=== PATIENT | female | born 1990 | race Caucasian/White ===

== ENCOUNTER 2017-11-29 12:15 | Emergency (ER) | payer OTHER ==
[2017-11-29] MEDS: IBUPROFEN 800 MG TAB PO (12:37)
== END 2017-11-29 13:55 | disposition home or self-care (01) ==
LOC: M ED 12:15
DX: S90.32XA Contusion of left foot, initial encounter (principal); W18.40XA Slipping, tripping and stumbling without falling, unspecified, initial encounter; Y92.099 Unspecified place in other non-institutional residence as the place of occurrence of the external cause; Y93.9 Activity, unspecified; Y99.9 Unspecified external cause status
CPT/HCPCS: 73610

== ENCOUNTER 2018-07-26 08:00 | Day surgery (SDC) | payer OTHER ==
[~2018-07-26] VITALS: Ht 170.2 cm; Wt 129.7 kg
[~2018-07-26 08:00] MED LIST: /AUGM25TA; AMPICILLIN SOD/SULBACTAM SOD 3 GM in D5W MINI-BAG PLUS 100 ML IV ONE; CEPH500C; COLA50CA3 PO; FERR325T; FERR325T3 PO; FLUO20SO GT; IBUP600T; IBUP600T26 PO; LORTTAB5 PO; LR 1,000 ML IV ONE; MOTR200T44 PO; No Home Meds; PERC5TAB12 PO; PRENTAB40 PO; PROV90AE; PROZ20CA; PROZ20CA11 PO; VICO5TAB; dexameTHASONE 4 MG/ML 1ML VIAL (J1100) IV ONE; prenatal vitamin
[2018-07-26] MEDS ORDERED: LIDOCAINE 2% W/ EPINEPHRINE 1.7 ML DENTAL INJ As Ordered ONE (09:31)
[2018-07-26 09:50] LABS: URINE PREG TEST NEGATIVE (NEGATIVE)
[2018-07-26] MEDS ORDERED: ONDANSETRON 4MG/2ML VIAL (J2405) As Ordered ONE (10:53)
[2018-07-26] MEDS ORDERED: PROPOFOL 200 MG/20 ML VIAL As Ordered ONE ×3 (10:53→12:18)
[2018-07-26] MEDS ORDERED: MIDAZOLAM INJ 2 MG/2 ML VIAL (J2250) As Ordered ONE (10:53)
[2018-07-26] MEDS ORDERED: SUGAMMADEX SODIUM 500 MG/5 ML VIAL (BRIDION) As Ordered ONE (10:53)
[2018-07-26] MEDS ORDERED: LIDOCAINE 2% JELLY 6 ML SYRINGE As Ordered ONE (10:53)
[2018-07-26] MEDS ORDERED: fentaNYL 250 MCG/5 ML INJECTION (J3010) As Ordered ONE (10:53)
[2018-07-26] MEDS ORDERED: LIDOCAINE 2% INJ 100 MG/5 ML SDV (FOR ANES.) As Ordered ONE (10:53)
[2018-07-26] MEDS ORDERED: fentaNYL 100 MCG/2 ML INJECTION (J3010) IV PRN (11:30)
[2018-07-26] MEDS ORDERED: NORCO, ANEXSIA 5/325MG TABLET (HYDROcodone/ACETAMINOPHEN) PO PRN (11:30)
[2018-07-26] MEDS ORDERED: LR 1,000 ML IV SCH (11:30)
[2018-07-26] MEDS ORDERED: ROCURONIUM BROMIDE 50 MG/5 ML VIAL As Ordered ONE (12:18)
[2018-07-26 12:40] VITALS: BP 122/71
--- NOTE | 2018-07-26 14:59 | RO ---
DATE OF PROCEDURE: 07/26/2018 PREOPERATIVE DIAGNOSES: 1. Morbid obesity and severe dental anxiety. 2. Decayed and symptomatic teeth number 18, 29 and 30. POSTOPERATIVE DIAGNOSIS: Status post the above. PROCEDURE PERFORMED: Surgical extraction of teeth number 18, 29 and 30. SURGEON: Govind Roberts MD BOOTH CLEANER: ANESTHESIA: General endotracheal anesthesia via oral OPAL. SPECIMEN: Teeth for gross only. INDICATIONS FOR SURGERY: June as a pleasant 28-year-old female that was referred to my office for evaluation for extraction of three symptomatic and carious teeth, numbers 18, 29 and 30. She had had her dentist attempt removal of the teeth on two separate occasions with inability to achieve complete local anesthesia. She does have severe dental anxiety and will require sedation. However, she is not an ideal candidate for office anesthesia due to her potential difficult airway, therefore a discussion was made with the patient regarding having the procedure done in an operating room setting under general anesthesia. All the risks, benefits and alternatives were explained to the patient and this was where she desires to have done to have those three teeth removed in the OR under general anesthesia. A complete history and physical was performed and informed consent was reviewed and signed and both are in the patient's chart. DESCRIPTION OF PROCEDURE: On June 26, 2018 the patient presented to [facility] preop holding area. Any last minute questions were addressed. The history and physical and consent were updated. At that point the patient was taken back to the operating room. She was laid supine on the operating room table. Ulnar nerve protectors were placed. Noninvasive cardiac monitors were applied. At that point, the patient underwent general anesthesia and was intubated with an oral OPAL. She was then prepped and draped in the usual sterile fashion. A time out procedure was performed to identify the patient, the procedure and any other precautions. Preoperative antibiotics and steroids were administered in the IV. At this point a moist throat pack was inserted in the patient's oropharynx followed by the administration of 6 Carpule's of 2% lidocaine with 1:100,000 epinephrine as local infiltrations and blocks. A full-thickness flap was raised in sites number 30 and 29 with a distal release. Buccal bone was then removed from sites number 29 and 30. Forceps were then used to subluxate and deliver the teeth without any incident. Sockets were copiously irrigated and curetted and the flaps were closed with #3-0 chromic sutures. Attention was then given to tooth #18 where a sulcular flap was released with a posterior distal release. Buccal bone was removed. Forceps were then used to subluxate and deliver the tooth. The socket was copiously irrigated and curetted, and the flap was closed with #3-0 chromic sutures. At this point, the oral cavity was irrigated and suctioned. The throat pack was removed and the patient was awakened from general anesthesia and taken back to the postanesthesia care unit (PACU). COMPLICATIONS: None. ESTIMATED BLOOD LOSS: 10 mL. DRAINS: There were no drains placed.
== END 2018-07-26 12:53 | disposition home or self-care (01) ==
LOC: M SDC 08:00
PROVIDERS: ATTEND Dentist
DX: K02.9 Dental caries, unspecified (principal); D64.9 Anemia, unspecified; E66.01 Morbid (severe) obesity due to excess calories; F41.9 Anxiety disorder, unspecified; F32.9 Major depressive disorder, single episode, unspecified
CPT/HCPCS: 84703; 88300; D7210; D9223; J1100; J2250; J2405; J3010

== ENCOUNTER 2018-11-13 20:39 | Emergency (ER) | payer OTHER ==
[~2018-11-13] VITALS: Ht 170.2 cm; Wt 113.6 kg
[~2018-11-13 20:39] MED LIST changes: -AMPICILLIN SOD/SULBACTAM SOD 3 GM in D5W MINI-BAG PLUS 100 ML IV ONE; -LR 1,000 ML IV ONE; -dexameTHASONE 4 MG/ML 1ML VIAL (J1100) IV ONE
[2018-11-13] MEDS ORDERED: NS 1,000 ML IV SCH (21:23)
[2018-11-13] MEDS ORDERED: methylPREDNISolone INJ 125 MG/2 ML VIAL (J2930) IV ONE (21:30)
[2018-11-13] MEDS: IPRATROPIUM 0.5MG/ALBUTEROL 2.5MG INH SOL UD 3ML (DUONEB)(J7620) NEB PRN ×2 (21:40→21:44)
[2018-11-13 22:11] LABS: BASO # 0.1 10^3/uL (0.0-0.2); BASO % 0.4 % (0.0-1.0); EOS # 0.2 10^3/uL (0.0-0.50); EOS % 1.1 % (0.0-3.0); HEMATOCRIT 43.5 % (36.0-47.0); HEMOGLOBIN 14.5 g/dl (12.0-15.5); LYMPH # 2.4 10^3/uL (1.5-6.5); LYMPH % 18.2 % (24.0-44.0); MEAN CORPUSCULAR HEMOGLOBIN 29.9 pg (27.0-33.0); MEAN CORPUSCULAR HGB CONC 33.3 g/dl (32.0-36.5); MEAN CORPUSCULAR VOLUME 89.7 fl (80.0-96.0); MONO # 0.8 10^3/uL (0.0-0.8); MONO % 5.6 % (0.0-5.0); NEUTROPHILS # 9.9 10^3/uL (1.8-7.7); NEUTROPHILS % 74.3 % (36.0-66.0); PLATELET COUNT, AUTOMATED 228 10^3/uL (150-450); RED BLOOD COUNT 4.85 10^6/uL (4.00-5.40); WHITE BLOOD COUNT 13.4 10^3/uL (4.0-10.0)
[2018-11-13 22:21] LABS: INR 0.89; PROTHROMBIN TIME 11.7 SECONDS (11.8-14.0)
[2018-11-13 22:27] LABS: ALBUMIN 3.6 GM/DL (3.2-5.2); ALT/SGPT 27 U/L (12-78); BILIRUBIN,DIRECT 0.1 MG/DL (0.0-0.2); BILIRUBIN,TOTAL 0.3 MG/DL (0.2-1.0); BLOOD UREA NITROGEN 12 MG/DL (7-18); CALCIUM LEVEL 8.4 MG/DL (8.5-10.1); CARBON DIOXIDE LEVEL 25 MEQ/L (21-32); CHLORIDE LEVEL 109 MEQ/L (98-107); CK-MB VALUE MASS 1.1 NG/ML (<3.6); CPK CREATINE PHOSPHOKINASE 101 U/L (26-192); CREATININE FOR GFR 0.72 MG/DL (0.55-1.30); GLOMERULAR FILTRATION RATE > 60.0 (>60); GLUCOSE, FASTING 86 MG/DL (70-100); MB/CK RELATIVE INDEX 1.09 (< OR =4); NT-PRO BNP 35 PG/ML (<125); POTASSIUM SERUM 3.9 MEQ/L (3.5-5.1); SODIUM LEVEL 140 MEQ/L (136-145); TOTAL PROTEIN 6.9 GM/DL (6.4-8.2); TROPONIN I < 0.02 NG/ML (< 0.10)
[2018-11-13] MEDS ORDERED: LEVA1TAB2 PO (23:20)
[2018-11-13] MEDS ORDERED: ALBUTEROL 90 MCG/ACT 8GM HFA INHALER INH ONE (23:30)
[2018-11-13] MEDS ORDERED: MOXIFLOXACIN 400 MG TAB PO ONE (23:30)
[2018-11-14 00:19] VITALS: BP 127/60
--- NOTE | 2018-11-14 07:20 | ECGEPIP ---
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
--- NOTE | 2018-11-14 08:33 | REP ---
Clinical: Cough and dyspnea . Comparison: 05/21/2011 . Findings: The mediastinum and cardiac silhouette are stable and within normal limits for portable technique. The lung pitts are clear without acute consolidation, effusion, or pneumothorax. Skeletal structures are intact. Impression: No acute cardiopulmonary process appreciated. Electronically Signed by Bo Wallace MD 11/14/2018 08:24 A
== END 2018-11-14 00:22 | disposition home or self-care (01) ==
LOC: M ED 20:39
DX: J40 Bronchitis, not specified as acute or chronic (principal); F17.210 Nicotine dependence, cigarettes, uncomplicated
CPT/HCPCS: 71045; 80048; 80076; 82550; 82553; 83605; 83880; 85025; 85610; 87040; 93005; 93041; 94640; 94760; 99284; J2930

== ENCOUNTER 2019-12-05 13:16 | Emergency (ER) | payer OTHER ==
[~2019-12-05] VITALS: Ht 170.2 cm; Wt 104.5 kg
[~2019-12-05 13:16] MED LIST changes: +LEVA1TAB2 PO
[2019-12-05 14:00] LABS: BASO # 0.1 10^3/uL (0.0-0.2); BASO % 0.6 % (0.0-1.0); EOS # 0.1 10^3/uL (0.0-0.5); EOS % 1.5 % (0.0-3.0); HEMATOCRIT 41.2 % (36.0-47.0); HEMOGLOBIN 13.8 g/dl (12.0-15.5); LYMPH % 22.8 % (24.0-44.0); MEAN CORPUSCULAR HEMOGLOBIN 30.3 pg (27.0-33.0); MEAN CORPUSCULAR HGB CONC 33.5 g/dl (32.0-36.5); MEAN CORPUSCULAR VOLUME 90.4 fl (80.0-96.0); MONO # 0.7 10^3/uL (0.0-0.8); MONO % 8.1 % (0.0-5.0); NEUTROPHILS # 5.8 10^3/uL (1.5-8.5); NEUTROPHILS % 66.7 % (36.0-66.0); PLATELET COUNT, AUTOMATED 237 10^3/uL (150-450); RED BLOOD COUNT 4.56 10^6/uL (4.00-5.40); WHITE BLOOD COUNT 8.7 10^3/uL (4.0-10.0)
[2019-12-05] MEDS ORDERED: NS 1,000 ML IV ONE (14:00)
[2019-12-05] MEDS ORDERED: ONDANSETRON 4MG/2ML VIAL IV ONE (14:00)
[2019-12-05] MEDS ORDERED: KETOROLAC 30 MG/ML 1ML VIAL IV ONE (14:15)
[2019-12-05 14:40] LABS: BLOOD UREA NITROGEN 12 MG/DL (7-18); CARBON DIOXIDE LEVEL 28 MEQ/L (21-32); CHLORIDE LEVEL 111 MEQ/L (98-107); CREATININE FOR GFR 0.72 MG/DL (0.55-1.30); GLOMERULAR FILTRATION RATE > 60.0 (>60); GLUCOSE, FASTING 113 MG/DL (70-100); POTASSIUM SERUM 3.8 MEQ/L (3.5-5.1); SODIUM LEVEL 143 MEQ/L (136-145)
[2019-12-05 14:41] LABS: ALBUMIN 3.6 GM/DL (3.2-5.2); ALT/SGPT 119 U/L (12-78); BILIRUBIN,DIRECT 0.9 MG/DL (0.0-0.2); BILIRUBIN,TOTAL 1.4 MG/DL (0.2-1.0); CALCIUM LEVEL 9.1 MG/DL (8.5-10.1); CK-MB VALUE MASS 3.7 NG/ML (<3.6); CPK CREATINE PHOSPHOKINASE 130 U/L (26-192); LIPASE 86 U/L (73-393); MB/CK RELATIVE INDEX 2.85 (< OR =4); TOTAL PROTEIN 6.3 GM/DL (6.4-8.2); TROPONIN I < 0.02 NG/ML (< 0.10)
[2019-12-05 14:47] LABS: HCG, SERUM QUALITATIVE NEGATIVE (NEGATIVE)
[2019-12-05 15:35] LABS: GLUCOSE, URINE (UA) MANUAL NEGATIVE (NEGATIVE); KETONE, URINE MANUAL 3+ mg/dL (NEGATIVE)
[2019-12-05 15:36] LABS: BILIRUBIN, URINE MANUAL 1+ (NEGATIVE); UROBILINOGEN, URINE MANUAL 4 MG mg/dl (NORMAL)
[2019-12-05 15:37] LABS: AMORPHOUS SEDIMENT, URINE MOD AMOUNT (NEGATIVE); BACTERIA, URINE SMALL AMOUNT; HYALINE CAST, URINE NONE SEEN /lpf (0-1); MUCUS, URINE SMALL AMOUNT (NEGATIVE); SQUAMOUS EPITHELIAL CELL URINE SMALL AMOUNT /hpf (SMALL AMT)
[2019-12-05 15:56] LABS: AMPHETAMINES LEVEL URINE NEGATIVE (NEGATIVE); BARBITURATES URINE NEGATIVE (NEGATIVE); BENZODIAZEPINES URINE NEGATIVE (NEGATIVE); CANNABINOIDS URINE POSITIVE (NEGATIVE); COCAINE METABOLITE URINE NEGATIVE (NEGATIVE); METHADONE URINE NEGATIVE (NEGATIVE); OPIATES URINE NEGATIVE (NEGATIVE); PHENCYCLIDINE URINE NEGATIVE (NEGATIVE)
--- NOTE | 2019-12-05 16:13 | REPVR ---
PROCEDURE INFORMATION: Exam: US Abdomen, Limited; Right Upper Quadrant Exam date and time: 12/05/2019 3:49 PM Age: 29 years old Clinical indication: Abdominal pain; Additional info: Abd pain with elevated liver enzymes TECHNIQUE: Imaging protocol: US abdomen. Real time ultrasound with image documentation. Limited exam focused on the right upper quadrant. COMPARISON: No relevant prior studies available. FINDINGS: Liver: Normal appearing liver. Gallbladder: There is a 5 mm mobile stone in the dependent portion of the gallbladder. There is thickening of the gallbladder wall measuring 5 mm. The patient had not fasted for this examination and thickening can be seen with contraction the gallbladder. To exclude the possibility of acute cholecystitis I would recommend that the patient have a HIDA scan or follow-up fasting ultrasound. Common bile duct: The common bile duct is top-normal in size measuring 7 mm. Pancreas: The pancreas is normal in size. Right kidney: The right kidney measures 10.5 cm in length and there is no evidence of hydronephrosis. IMPRESSION: 1. 5 mm mobile gallstone dependent portion gallbladder. 2. Thickening of the gallbladder wall measuring 5 mm. Partially contracted gallbladder versus cholecystitis and it would be helpful to obtain a HIDA scan or follow-up fasting ultrasound. Electronically signed by: Mark Hobbs On 12/05/2019 16:13:40 PM
--- NOTE | 2019-12-05 18:03 | REPVR ---
PROCEDURE INFORMATION: Exam: MR Abdomen Without Contrast; Liver Exam date and time: 12/05/2019 4:21 PM Age: 29 years old Clinical indication: Abdominal pain; Acute; Patient HX: Mrcp<, abnormal gb u/s; Additional info: Abd pain, elevated liver enzymes R/O choledocolithiasis TECHNIQUE: Imaging protocol: MR Abdomen without contrast. Exam focused on the liver. 3D rendering (Not supervised by radiologist): MIP and/or 3D reconstructed images were created by the technologist. COMPARISON: GALLBLADDER US 12/05/2019 3:33 PM FINDINGS: Liver: Unremarkable liver. No lesions. Gallbladder and bile ducts: A 2.7 mm gallstone is present dependently in the nondistended gallbladder. Additional smaller calculi may be present, but are difficult to resolved. No luminal dilatation or wall thickening. The common bile duct measures 5.0 mm. No ductal calcul. Pancreas: Normal. No ductal dilatation. Spleen: A small medial splenule is present. Kidneys and ureters: Normal kidneys. Visualized ureters are unremarkable. Intraperitoneal space: Minimal nonspecific pericholecystic fluid at the gallbladder fundus. IMPRESSION: Cholelithiasis. Electronically signed by: Randall Rutledge On 12/05/2019 18:03:33 PM
[2019-12-05 18:37] VITALS: BP 117/71
[2019-12-05] MEDS ORDERED: ONDA4TAB6 PO (18:44)
[2019-12-05 19:18] LABS: HEPATITIS B SURFACE ANTIGEN NEGATIVE (NEGATIVE)
[2019-12-05 19:46] LABS: HEPATITIS B CORE ANTIBODY IGM NEGATIVE (NEGATIVE); HEPATITIS C VIRUS ABY INDEX 0.2 INDEX (<0.8)
--- NOTE | 2019-12-05 19:47 | ED PDOC ---
Post-Departure Follow-Up dr yun faxed formal report of us for fu Paulina Villarreal MD Dec 05, 2019 19:47
[2019-12-05 19:48] LABS: HEPATITIS A ANTIBODY IGM NEGATIVE (NEGATIVE)
--- NOTE | 2019-12-05 20:33 | ECGEPIP ---
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
== END 2019-12-05 19:10 | disposition home or self-care (01) ==
LOC: M ED 13:16
DX: K80.70 Calculus of gallbladder and bile duct without cholecystitis without obstruction (principal); R94.5 Abnormal results of liver function studies; F17.210 Nicotine dependence, cigarettes, uncomplicated
CPT/HCPCS: 36415; 74181; 76705; 80048; 80076; 80307; 81000; 82550; 82553; 83690; 84703; 85025; 86705; 86709; 86803; 87340; 93005; 96361; 96374; 96375; 99284; J1885; J2405

== ENCOUNTER 2020-04-13 20:09 | Emergency (ER) | payer OTHER ==
[~2020-04-13] VITALS: Ht 170.2 cm; Wt 90.9 kg
[~2020-04-13 20:09] MED LIST changes: +ONDA4TAB6 PO
--- OUTSIDE RECORDS SUMMARY | 2020-04-13 20:16 | CCD ---
Author Author [facility] Organization [facility] Address Unknown Phone Unavailable Care Team Providers Care Technology Architect Name Role Phone NCILAN, SRASO Unavailable Unavailable Re-disclosure Warning The records that you are about to access may contain information from federally-assisted alcohol or drug abuse programs. If such information is present, then the following federally mandated warning applies: This information has been disclosed to you from records protected by federal confidentiality rules (42 CFR part 2). The federal rules prohibit you from making any further disclosure of this information unless further disclosure is expressly permitted by the written consent of the person to whom it pertains or as otherwise permitted by 42 CFR part 2. A general authorization for the release of medical or other information is NOT sufficient for this purpose. The Federal rules restrict any use of the information to criminally investigate or prosecute any alcohol or drug abuse patient.The records that you are about to access may contain highly sensitive health information, the redisclosure of which is protected by Article 27-F of the [facility] Public Health law. If you continue you may have access to information: Regarding HIV / AIDS; Provided by facilities licensed or operated by the [facility] Office of Mental Health; or Provided by the [facility] Office for People With Developmental Disabilities. If such information is present, then the following [facility] mandated warning applies: This information has been disclosed to you from confidential records which are protected by state law. State law prohibits you from making any further disclosure of this information without the specific written consent of the person to whom it pertains, or as otherwise permitted by law. Any unauthorized further disclosure in violation of state law may result in a fine or long-term sentence or both. A general authorization for the release of medical or other information is NOT sufficient authorization for further disc losure. Encounters Encounter Providers Location Date Indications Data Source(s ) Outpatient Attender: [facility] 07/11/2019 11:58:00 AM EDT [facility] Outpatient Attender: [facility] 07/07/2019 09:48:00 AM EDT [facility] Outpatient Attender: [facility] 07/07/2019 09:46:00 AM EDT [facility] Outpatient Attender: [facility] 07/07/2019 09:45:01 AM EDT [facility] Outpatient Attender: [facility] 07/06/2019 02:14:01 PM EDT [facility] Outpatient Attender: [facility] 07/06/2019 02:14:00 PM EDT [facility] Outpatient Attender: [facility] 07/06/2019 01:22:00 PM EDT [facility] Medications Medication Brand Name Start Date Product Form Dose Route Admi nistrative Instructions Pharmacy Instructions Status Indications Reaction Description Data Source(s) 20 mg 12/30/2019 12:00:00 AM EDT capsule,delayed release (DR/EC) 60 TAKE ONE CAPSULE BY MOUTH EVERY MORNING DIRECTED TAKE ONE CAPSULE BY MOUTH EVERY MORNING DIRECTED SOLD: 01/06/2020 [facility] No Active Medications 12/29/2019 12:00:00 AM EDT completed [facility] ([facility], ) Omeprazole 20 MG Delayed Release Oral Capsule Omeprazole 12/29/2019 12:00:00 AM EDT ORAL active [facility] ([facility], ) 500 mg 07/06/2019 12:00:00 AM EDT capsule 21 TAKE ONE CAPSULE BY MOUTH EVERY 8 HOURS UNTIL GONE TAKE ONE CAPSULE BY MOUTH EVERY 8 HOURS UNTIL GONE [facility] 137 mcg (0.1 %) 05/27/2019 12:00:00 AM EDT aerosol,spray 30 SPRAY ONE SPRAY IN EACH NOSTRIL TWICE A DAY FOR 7 DAYS SPRAY ONE SPRAY IN EACH NOSTRIL TWICE A DAY FOR 7 DAYS SOLD: 05/27/2019 [facility] 1 gram 05/27/2019 12:00:00 AM EDT tablet 4 TAKE TWO TABLETS BY MOUTH TWICE A DAY FOR ONE DAY TAKE TWO TABLETS BY MOUTH TWICE A DAY FOR ONE DAY SOLD : 05/27/2019 [facility] 875-125 mg 05/27/2019 12:00:00 AM EDT tablet 14 TAKE ONE TABLET BY MOUTH TWICE A DAY FOR 7 DAYS TAKE ONE TABLET BY MOUTH TWICE A DAY FOR 7 DAYS SOLD: 05/27/2019 [facility] Insurance Providers Payer name Policy type / Coverage type Policy ID Covered constitution party ID Covered constitution party's relationship to andrade Policy Andrade Plan Information [facility] PLAN [facility] [id number] SP [id number] [facility] Community Plan P [id number] S [id number] Medicaid S [id number] S [id number] [facility] Plan P UNAVAILABLE S UNAVAILABLE Medicaid S UNAVAILABLE S UNAVAILA [facility] O [id number] S [id number] MEDICAID [id number] SP [id number] [facility] COMMUNITY PLAN [facility] [id number] SP [id number] [facility] [id number] SP [id number] [facility] [id number] SP [id number] [facility] PLAN [facility] [id number] SP [id number] [facility] PLAN [facility] [id number] SP [id number] Problems, Conditions, and Diagnoses Code Display Name Description Problem Type Effective Dates Data Source(s) 525.10 Teeth extraction Teeth extraction 07/06/2019 02 :13:08 PM EDT [facility] Results ID Date Data Source [id number] 07/06/2019 01:36:20 PM EDT [facility] Current Problems: Teeth extraction (ICD- 525.10) (AZE91-T70.499)Current Medications: AMOXICILLIN 500 MG CAPS (AMOXICILLIN) 1 tablet by mouth every 8 hours until gone; Route: ORAL Dental Chart: Procedures:Type - CDT Code - Description B - (D0140) Limited oral evaluation - problem focused on Tooth # 7 (Performed by Kathy Jasmine DDS) B - (D0220) Intraoral, periapical, first radiographic image on Tooth # 7 (Performed by Kathy Jasmine DDS) Treatments:Type - CDT Code - Description T - (D7140) Extraction, erupted tooth or exposed root (elevation and/or forceps removal) on Tooth # 7 (Performed by Kathy Jasmine DDS) Chart Notes:gary (Jul 06 2019 2:11PM): Pt. was a walk in.S: CC: "I have a loose tooth on the top front that is uncomforatable. I am just afraid that it is going to fall out. I was a regular pt. at [facility] and they treated me terrible and I do not want to be seen there anymore."O: RMHx (-) per pt. no known allergies and no chance of . No control at this time. HPI: a month. PL:2. BP: 140/98. PA taken #7. #7 periapical abcess present with mobility. Sensitive to palpation.P: Placed prescription of antibiotics to [facility] on [facility]. DX: #7 perio involved with abcess present.P: refer to [facility] Amoxicillin 500mg q8h until gone dispense 21 tabs zero refills Informed Pt about new pain management policy of the clinic regarding about narcotic,told pt to alternate Ibuprophen 600- 800mg and tylenol 500mg every 4 to 6 hrs for pain when neededPt. was very talkative and fidgeting and sometimes her conversation does not make sense. Maybe she is just nervous. Assisted By:AM.NV: new p/e.Kathy Jasmine DDS by gary (07/06/2019 2:11 PM): Tooth Notes and Watches: Assessment & Plan Problems:Added: Teeth extraction (ICD-525.10) (TVL69-V29.499)Medications:AMOXICILLIN 500 MG CAPSMedication Changes:New Prescription:AMOXICILLIN 500 MG CAPS-1 tablet by mouth every 8 hours until gone Qty: 21[Capsule] Refills: 0 Method: Electroni cAllergies:No Known Allergies (updated 07/06/2019) Orders:Oral Surgery Referral [[id number]] Name Value Range Interpretation Code Description Data Indira rce(s) Supporting Document(s) Procedure Vital Signs ID Date Data Source UNK Name Value Range Interpretation Code Description Data Source(s) Body weight 101.606 kg 101.606 [facility] [place] body weight 130 [lb_av] 130 [lb_av] ROSSI Wilkerson ([facility]) Body mass index (BMI) [Ratio] 36.2 kg/m2 36.2 k g/m2 [facility] ([facility]) Body weight 224.00 [lb_av] 224.00 [lb_av] ROSSI Wilkerson ([facility], ) Body height 66 [in_i] 66 [in_i] [facility] ([facility]) 5'6" Diastolic blood pressure 60 mm[Hg] 60 mm[Hg] [facility] ([facility]) Systolic blood pressure 130 mm[Hg] 130 mm[Hg] Patrizia REMY ([facility], )
--- OUTSIDE RECORDS SUMMARY | 2020-04-13 22:33 | CCD ---
Author Author [facility] Organization [facility] Address Unknown Phone Unavailable Care Team Providers Care Pet House Sitter Name Role Phone NCILAN, SRASO Unavailable Unavailable [...] is protected by Article 27-F of the [facility] Public Health law. If you continue you may have access to information: Regarding HIV / AIDS; Provided by facilities licensed or operated by the [facility] Office of Mental Health; or Provided by the [facility] Office for People With Developmental Disabilities. If such information is present, then the following [facility] mandated warning applies: This information has been [...] law may result in a fine or [place] health care facility sentence or both. A general authorization for the release of medical or other information is NOT sufficient authorization for further disc losure. Encounters Encounter Providers Location Date Indications Data Source(s ) Outpatient Attender: [facility] 07/11/2019 11:58:00 AM EDT [facility] Outpatient Attender: [facility] 07/07/2019 09:48:00 AM EDT [facility] Outpatient Attender: [facility] 07/07/2019 09:46:00 AM EDT [facility] Outpatient Attender: [facility] 07/07/2019 09:45:01 AM EDT [facility] Outpatient Attender: [facility] 07/06/2019 02:14:01 PM EDT [facility] Outpatient Attender: [facility] 07/06/2019 02:14:00 PM EDT [facility] Outpatient Attender: [facility] 07/06/2019 01:22:00 PM EDT [facility] [...] Medications 12/29/2019 12:00:00 AM EDT completed [facility] ([facility], ) Omeprazole 20 MG Delayed Release Oral Capsule Omeprazole 12/29/2019 12:00:00 AM EDT ORAL active [facility] ([facility], ) 500 mg 07/06/2019 12:00:00 AM [...] type / Coverage type Policy ID Covered alliance party ID Covered alliance party's relationship to andrade Policy Andrade Plan Information [facility] PLAN [facility] [id number] SP [id number] [facility] Community Plan P [id number] S [id number] Medicaid S [id number] S [id number] [facility] Plan P UNAVAILABLE S UNAVAILABLE Medicaid S UNAVAILABLE S UNAVAILA [facility] O [id number] S [id number] MEDICAID [id number] SP [id number] [facility] COMMUNITY PLAN [facility] [id number] SP [id number] [facility] [id number] SP [id number] [facility] [id number] SP [id number] [facility] PLAN [facility] [id number] SP [id number] [facility] PLAN [facility] [id number] SP [id number] Problems, Conditions, and Diagnoses Code Display Name Description Problem Type Effective Dates Data Source(s) 525.10 Teeth extraction Teeth extraction 07/06/2019 02 :13:08 PM EDT [facility] Results ID Date Data Source [id number] 07/06/2019 01:36:20 PM EDT [facility] Current Problems: Teeth extraction (ICD- 525.10) (TXS17-S45.499)Current Medications: AMOXICILLIN 500 MG CAPS (AMOXICILLIN) 1 [...] out. I was a regular pt. at [facility] and they treated me terrible and I do not want to be seen there anymore."O: RMHx (-) per pt. no known allergies and no chance of . No control at this time. HPI: a month. PL:2. BP: 140/98. PA taken #7. #7 periapical abcess present with mobility. Sensitive to palpation.P: Placed prescription of antibiotics to [facility] on [facility]. DX: #7 perio involved with abcess present.P: [...] Assessment & Plan Problems:Added: Teeth extraction (ICD-525.10) (NPJ60-I27.499)Medications:AMOXICILLIN 500 MG CAPSMedication Changes:New Prescription:AMOXICILLIN 500 MG CAPS-1 tablet by mouth every 8 hours until gone Qty: 21[Capsule] Refills: 0 Method: Electroni cAllergies:No Known Allergies (updated 07/06/2019) Orders:Oral Surgery Referral [[id number]] Name Value Range Interpretation Code Description Data Indira rce(s) Supporting Document(s) Procedure Vital Signs ID Date Data Source UNK Name Value Range Interpretation Code Description Data Source(s) Body weight 101.606 kg 101.606 [facility] [place] body weight 130 [lb_av] 130 [lb_av] ROSSI Wilkerson ([facility]) Body mass index (BMI) [Ratio] 36.2 kg/m2 36.2 k g/m2 [facility] ([facility]) Body weight 224.00 [lb_av] 224.00 [lb_av] ROSSI Wilkerson ([facility], ) Body height 66 [in_i] 66 [in_i] [facility] ([facility]) 5'6" Diastolic blood pressure 60 mm[Hg] 60 mm[Hg] [facility] ([facility]) Systolic blood pressure 130 mm[Hg] 130 mm[Hg] Patrizia REMY ([facility], )
[2020-04-13] MEDS ORDERED: REGL10TA6 PO (22:50)
[2020-04-13] MEDS ORDERED: NAPR-837 PO (22:50)
[2020-04-13 22:53] VITALS: BP 151/86
[2020-04-13] MEDS ORDERED: METOCLOPRAMIDE 10 MG TAB PO ONE (23:00)
[2020-04-13] MEDS ORDERED: NAPROXEN 250 MG TAB PO ONE (23:00)
[2020-04-13] MEDS ORDERED: diphenhydrAMINE 25MG CAP PO ONE (23:00)
== END 2020-04-13 22:58 | disposition home or self-care (01) ==
LOC: M ED 20:09
DX: S06.0X0A Concussion without loss of consciousness, initial encounter (principal); S00.03XA Contusion of scalp, initial encounter; W00.0XXA Fall on same level due to ice and snow, initial encounter; Y92.410 Unspecified street and highway as the place of occurrence of the external cause; F17.210 Nicotine dependence, cigarettes, uncomplicated

== ENCOUNTER → 2020-07-26 | Outpatient (REF) | payer OTHER ==
[~2020-07-26] MED LIST changes: +NAPR-837 PO; +REGL10TA6 PO
[2020-07-26 16:42] LABS: HEMATOCRIT 36.5 % (36.0-47.0); HEMOGLOBIN 11.7 g/dl (12.0-15.5); MEAN CORPUSCULAR HEMOGLOBIN 29.9 pg (27.0-33.0); MEAN CORPUSCULAR HGB CONC 32.1 g/dl (32.0-36.5); MEAN CORPUSCULAR VOLUME 93.4 fl (80.0-96.0); PLATELET COUNT, AUTOMATED 250 10^3/uL (150-450); RED BLOOD COUNT 3.91 10^6/uL (4.00-5.40); WHITE BLOOD COUNT 8.5 10^3/uL (4.0-10.0)
[2020-07-26 17:39] LABS: HCG, SERUM QUANTITATIVE 4385 MIU/ML; HEPATITIS B SURFACE ANTIGEN NEGATIVE (NEGATIVE); HEPATITIS C VIRUS ABY INDEX < 0.0 INDEX (<0.8); HIV 1&2 SCREEN CENTAUR NEGATIVE (NEGATIVE)
== END ==
LOC: M LAB REF 15:57
PROVIDERS: ATTEND Obstetrics & Gynecology
DX: Z32.01 Encounter for pregnancy test, result positive (principal)

== ENCOUNTER → 2020-08-23 | Outpatient (REF) | payer OTHER | LOC: M LAB REF 16:30 | PROVIDERS: ATTEND Obstetrics & Gynecology | DX: Z34.81 Encounter for supervision of other normal pregnancy, first trimester (principal) ==

== ENCOUNTER → 2020-10-18 | Outpatient (REF) | payer OTHER | LOC: M LAB REF 13:05 | PROVIDERS: ATTEND Obstetrics & Gynecology | DX: Z36.89 Encounter for other specified antenatal screening (principal) ==

== ENCOUNTER 2020-11-18 11:45 | Emergency (ER) | payer OTHER ==
[~2020-11-18] VITALS: Ht 170.2 cm; Wt 104.5 kg
[2020-11-18] MEDS ORDERED: ALBUTEROL 90 MCG/ACT 8GM HFA INHALER INH ONE (13:05)
[2020-11-18] MEDS ORDERED: NS 1,000 ML IV ONE ×2 (13:10→15:30)
[2020-11-18 13:48] LABS: BASO % 0.3 % (0.0-1.0); EOS % 0.5 % (0.0-3.0); HEMATOCRIT 36.3 % (36.0-47.0); HEMOGLOBIN 12.1 g/dl (12.0-15.5); LYMPH # 0.4 10^3/uL (1.5-5.0); MEAN CORPUSCULAR HEMOGLOBIN 30.6 pg (27.0-33.0); MEAN CORPUSCULAR HGB CONC 33.3 g/dl (32.0-36.5); MEAN CORPUSCULAR VOLUME 91.7 fl (80.0-96.0); MONO # 0.5 10^3/uL (0.0-0.8); MONO % 5.9 % (2.0-8.0); NEUTROPHILS # 6.8 10^3/uL (1.5-8.5); NEUTROPHILS % 87.5 % (36.0-66.0); PLATELET COUNT, AUTOMATED 164 10^3/uL (150-450); RED BLOOD COUNT 3.96 10^6/uL (4.00-5.40); WHITE BLOOD COUNT 7.8 10^3/uL (4.0-10.0)
[2020-11-18 13:54] LABS: RSV AMPLIFICATION NEGATIVE (NEGATIVE)
[2020-11-18 14:08] LABS: ALBUMIN 2.4 GM/DL (3.2-5.2); ALT/SGPT 33 U/L (12-78); BILIRUBIN,DIRECT < 0.1 MG/DL (0.0-0.2); BILIRUBIN,TOTAL 0.3 MG/DL (0.2-1.0); LIPASE 75 U/L (73-393); TOTAL PROTEIN 5.2 GM/DL (6.4-8.2)
[2020-11-18 17:01] VITALS: BP 125/65
== END 2020-11-18 17:50 | disposition home or self-care (01) ==
LOC: M ED 11:45
DX: O98.512 Other viral diseases complicating pregnancy, second trimester (principal); R00.0 Tachycardia, unspecified; U07.1 COVID-19; Z3A.22 22 weeks gestation of pregnancy; O99.332 Smoking (tobacco) complicating pregnancy, second trimester; F17.210 Nicotine dependence, cigarettes, uncomplicated

== ENCOUNTER → 2021-01-14 | Outpatient (CLI) | payer OTHER ==
[2021-01-14 18:09] LABS: HEMATOCRIT 37.6 % (36.0-47.0); HEMOGLOBIN 12.4 g/dl (12.0-15.5); MEAN CORPUSCULAR HEMOGLOBIN 30.2 pg (27.0-33.0); MEAN CORPUSCULAR VOLUME 91.5 fl (80.0-96.0); PLATELET COUNT, AUTOMATED 233 10^3/uL (150-450); RED BLOOD COUNT 4.11 10^6/uL (4.00-5.40); WHITE BLOOD COUNT 12.2 10^3/uL (4.0-10.0)
== END ==
LOC: M LAB 15:43
PROVIDERS: ATTEND Obstetrics & Gynecology
DX: Z34.82 Encounter for supervision of other normal pregnancy, second trimester (principal); Z3A.00 Weeks of gestation of pregnancy not specified

== ENCOUNTER → 2021-01-17 | Outpatient (CLI) | payer OTHER | LOC: M LAB 09:15 | PROVIDERS: ATTEND Obstetrics & Gynecology | DX: Z34.82 Encounter for supervision of other normal pregnancy, second trimester (principal); Z3A.00 Weeks of gestation of pregnancy not specified ==

== ENCOUNTER 2021-02-25 08:40 | Outpatient (CLI) | payer OTHER ==
[~2021-02-25] VITALS: Ht 167.6 cm; Wt 108.1 kg
[2021-02-25] VITALS (8 sets, daily range): BP systolic 101–144; BP diastolic 61–81
[2021-02-25] MEDS ORDERED: HOME MED LIST COMPLETE! XX SCH (09:05)
[2021-02-25] MEDS ORDERED: LR 1,000 ML IV ONE (09:10)
[2021-02-25] MEDS: ONDANSETRON 4MG/2ML VIAL IV SCH ×2 (09:35→14:26)
[2021-02-25 09:41] LABS: HEMATOCRIT 40.6 % (36.0-47.0); HEMOGLOBIN 13.6 g/dl (12.0-15.5); MEAN CORPUSCULAR HEMOGLOBIN 30.2 pg (27.0-33.0); MEAN CORPUSCULAR HGB CONC 33.5 g/dl (32.0-36.5); PLATELET COUNT, AUTOMATED 266 10^3/uL (150-450); RED BLOOD COUNT 4.51 10^6/uL (4.00-5.40); WHITE BLOOD COUNT 14.2 10^3/uL (4.0-10.0)
[2021-02-25 10:15] LABS: ALBUMIN 2.6 GM/DL (3.2-5.2); ALT/SGPT 16 U/L (12-78); BILIRUBIN,TOTAL 0.3 MG/DL (0.2-1.0); BLOOD UREA NITROGEN 12 MG/DL (7-18); CALCIUM LEVEL 8.7 MG/DL (8.5-10.1); CARBON DIOXIDE LEVEL 21 MEQ/L (21-32); CHLORIDE LEVEL 107 MEQ/L (98-107); CREATININE FOR GFR 0.55 MG/DL (0.55-1.30); GLOMERULAR FILTRATION RATE > 60.0 (>60); GLUCOSE, FASTING 98 MG/DL (70-100); POTASSIUM SERUM 4.2 MEQ/L (3.5-5.1); SODIUM LEVEL 138 MEQ/L (136-145); TOTAL PROTEIN 6.4 GM/DL (6.4-8.2)
[2021-02-25] MEDS ORDERED: PROMETHAZINE INJ 25 MG/ML VIAL (J2550) IV ONE (11:05)
[2021-02-25] MEDS: LR 1,000 ML IV SCH ×2 (11:38→14:29)
[2021-02-25] MEDS ORDERED: CALCIUM CARBONATE 500 MG CHEW U/D PO ONE (13:50)
[2021-02-25] MEDS ORDERED: ZOFR4TAB16 PO (16:59)
[2021-03-14] MEDS ORDERED: IBUP80TA PO (13:42)
[2021-03-14] MEDS ORDERED: PERCOCET PO (13:42)
[2021-03-14] MEDS ORDERED: COLA100C5 PO (13:42)
== END 2021-02-25 17:05 | disposition home or self-care (01) ==
LOC: M LDO 08:40
PROVIDERS: ATTEND Advanced Practice Midwife
DX: O21.8 Other vomiting complicating pregnancy (principal); O34.219 Maternal care for unspecified type scar from previous cesarean delivery; O99.213 Obesity complicating pregnancy, third trimester; O99.333 Smoking (tobacco) complicating pregnancy, third trimester; E66.9 Obesity, unspecified; F17.210 Nicotine dependence, cigarettes, uncomplicated; Z86.16 Personal history of COVID-19; Z3A.35 35 weeks gestation of pregnancy
CPT/HCPCS: 76815; 76819; 76820; 80053; 85027; 96360; 96361; 96374; 96375; J2405

== ENCOUNTER → 2021-02-26 | Outpatient (REF) | payer OTHER ==
[~2021-02-26] MED LIST changes: +COLA100C5 PO; +IBUP80TA PO; +PERCOCET PO; +ZOFR4TAB16 PO
== END ==
LOC: M LAB REF 16:37
PROVIDERS: ATTEND Obstetrics & Gynecology
DX: Z36.85 Encounter for antenatal screening for Streptococcus B (principal); Z3A.00 Weeks of gestation of pregnancy not specified

== ENCOUNTER → 2021-03-07 | Outpatient (CLI) | payer OTHER ==
[~2021-03-07] MED LIST changes: -COLA100C5 PO; -IBUP80TA PO; -PERCOCET PO
== END ==
LOC: M LABSMTC 09:12
PROVIDERS: ATTEND Anesthesiology
DX: Z01.812 Encounter for preprocedural laboratory examination (principal); Z20.822 Contact with and (suspected) exposure to COVID-19

== ENCOUNTER 2021-09-23 02:43 | Emergency (ER) | payer OTHER ==
[~2021-09-23] VITALS: Ht 170.2 cm; Wt 95.5 kg
[2021-09-23 02:43] VITALS: BP 127/77
[~2021-09-23 02:43] MED LIST changes: +COLA100C5 PO; +IBUP80TA PO; +PERCOCET PO
== END 2021-09-23 07:42 | disposition left against medical advice (07) ==
LOC: M ED 02:43
DX: Z53.29 Procedure and treatment not carried out because of patient's decision for other reasons (principal)

== ENCOUNTER 2024-03-10 10:45 | Emergency (ER) | payer OTHER ==
[~2024-03-10] VITALS: Ht 170.2 cm; Wt 131.4 kg
[~2024-03-10 10:45] MED LIST changes: +ONDA-282 PO; -ONDA4TAB6 PO
[2024-03-10] MEDS ORDERED: AMOX500T PO (15:06)
[2024-03-10] MEDS ORDERED: AMOX500C PO ×2 (15:08)
[2024-03-10] MEDS ORDERED: AMOX400S2 PO (15:10)
[2024-03-10 15:15] VITALS: BP 129/79; TEMP 98.3; O2SAT 97
== END 2024-03-10 15:18 | disposition home or self-care (01) ==
LOC: M ED 10:45
DX: J02.0 Streptococcal pharyngitis (principal); F17.200 Nicotine dependence, unspecified, uncomplicated; Z88.5 Allergy status to narcotic agent

== ENCOUNTER 2024-06-18 17:37 | Emergency (ER) | payer OTHER ==
[~2024-06-18] VITALS: Ht 170.2 cm; Wt 126.7 kg
[~2024-06-18 17:37] MED LIST changes: +AMOX400S2 PO; +AMOX500C PO; +AMOX500T PO
[2024-06-18 17:39] VITALS: BP 136/88; TEMP 97.6; O2SAT 100
[2024-06-18] MEDS: BOOSTRIX VACCINE (TETANUS/DIPHTH/ACEL. PERTUSSIS) 0.5ML SYR IM.IMMUN ONE (20:00)
== END 2024-06-18 20:12 | disposition home or self-care (01) ==
LOC: M ED 17:37
DX: S80.01XA Contusion of right knee, initial encounter (principal); Y92.9 Unspecified place or not applicable; Y93.9 Activity, unspecified; Y99.9 Unspecified external cause status; I10 Essential (primary) hypertension; F17.210 Nicotine dependence, cigarettes, uncomplicated; Z88.5 Allergy status to narcotic agent; Z23 Encounter for immunization

== ENCOUNTER → 2025-02-01 | Outpatient (CLI) | payer OTHER | LOC: M EKG 09:04 | PROVIDERS: ATTEND Student in an Organized Health Care Education/Training Program | DX: R00.2 Palpitations (principal); Z53.9 Procedure and treatment not carried out, unspecified reason ==

== ENCOUNTER 2025-03-09 20:08 | Emergency (ER) | payer OTHER ==
[~2025-03-09] VITALS: Ht 170.2 cm; Wt 121.5 kg
[2025-03-10] MEDS ORDERED: NAPR-1405 PO (00:38)
[2025-03-10] MEDS ORDERED: DOXY-441 PO (00:38)
[2025-03-10] MEDS: NAPROXEN 250 MG TAB PO ONE (00:47)
[2025-03-10] MEDS: DOXYCYCLINE HYCLATE 100 MG TABLET PO ONE (00:47)
[2025-03-10 00:50] VITALS: BP 137/90; TEMP 97.7; O2SAT 100
== END 2025-03-10 00:52 | disposition home or self-care (01) ==
LOC: M ED 20:08
DX: L03.115 Cellulitis of right lower limb (principal); S80.01XA Contusion of right knee, initial encounter; W19.XXXA Unspecified fall, initial encounter; Y92.9 Unspecified place or not applicable; Y93.9 Activity, unspecified; Y99.9 Unspecified external cause status; F19.10 Other psychoactive substance abuse, uncomplicated; F12.10 Cannabis abuse, uncomplicated; F17.200 Nicotine dependence, unspecified, uncomplicated; Z88.5 Allergy status to narcotic agent